=== PATIENT | male | born 1985 | race Caucasian/White ===

== ENCOUNTER 2019-10-29 13:02 | Inpatient (IN) ==
[2019-10-29] MEDS ORDERED: *HR* LORazepam 2 MG/ML VIAL IM ONE (13:09)
[2019-10-29] MEDS ORDERED: *HR* LORazepam 2 MG/ML VIAL ONE (13:09)
[2019-10-29] MEDS ORDERED: Thiamine (B-1) 100 MG, Folic Acid 1 MG in 0.9 % Sodium Chloride 50 ML IVPB ONE (13:10)
[2019-10-29] MEDS ORDERED: 0.9 % Sodium Chloride 1,000 ML IVC ONE ×2 (13:10→14:41)
[2019-10-29] MEDS ORDERED: diazePAM 10 MG/2 ML SYRINGE IM STA (13:41)
[2019-10-29 14:12] LABS: Red Cell Distribution Width 13.2 % (11.5-14.5)
[2019-10-29 14:14] LABS: Basophils % 0.5 %; Hematocrit 36.2 % (37.5-50.1); Hemoglobin 12.7 g/dL (12.9-16.9); Lymphocytes # 0.3 K/mcL (0.6-4.6); Lymphocytes % 8.5 %; Mean Corpuscular HGB Conc 35.1 g/dL (31.6-35.5); Mean Corpuscular Hemoglobin 35.9 pg (28.0-33.3); Mean Corpuscular Volume 102.3 fL (83.0-100.0); Mean Platelet Volume 11.1 fL (9.4-12.4); Monocytes # 0.3 K/mcL (0.0-1.3); Neutrophils # 3.3 K/mcL (1.6-8.9); Nucleated Red Blood Cells 0.8 /100 WBC (0); Red Blood Count 3.54 M/mcL (4.19-5.50)
[2019-10-29 14:18] LABS: Acetaminophen < 10 mcg/mL (10-20); Salicylate < 2.5 mg/dL (15.0-30.0)
[2019-10-29] MEDS ORDERED: diazePAM 10 MG/2 ML SYRINGE IVP ONE (14:26)
[2019-10-29 14:27] LABS: INR 1.2; Prothrombin Time 13.5 Seconds (9.4-12.1)
[2019-10-29 14:33] LABS: Platelet Count 40 K/mcL (140-400)
[2019-10-29 14:40] LABS: BUN/Creatinine Ratio 18 (6-26); Blood Urea Nitrogen 13 mg/dL (6-20); Calcium 9.2 mg/dL (8.6-10.3); Carbon Dioxide 34 mEq/L (23-29); Chloride 76 mEq/L (98-107); Creatine Kinase 1089 Units/L (30-223); Ethanol < 10 mg/dL (Less than 10); Glucose 153 mg/dL (70-105); Lipase 254 Units/L (11-82); Magnesium 1.2 mg/dL (1.6-2.6); Osmolality,Calculated 281 (280-300); Potassium 2.3 mEq/L (3.5-5.1); Sodium 134 mEq/L (136-145); Troponin I 0.03 ng/mL (< 0.04); eGFR For African Americans > 60 (> 60); eGFR For Non-African Americans > 60 (> 60)
[2019-10-29] MEDS ORDERED: 0.9 % Sodium Chloride 500 ML IVC ONE (14:41)
[2019-10-29] MEDS ORDERED: Potassium Chloride 40 MEQ, Lidocaine 1% 2 ML in 0.9 % Sodium Chloride 500 ML IVPB ONE (14:44)
[2019-10-29] MEDS ORDERED: Magnesium Sulfate 1 GM/102 ML PIGGYBACK IVPB ONE (14:49)
[2019-10-29 14:54] LABS: Thyroid Stimulating Hormone 1.609 mcIU/mL (0.340-5.600)
[2019-10-29] MEDS ORDERED: cefTRIAXone 1,000 MG in Water for inj. (sterile) 10 ML IVP ONE (15:33)
[2019-10-29] MEDS ORDERED: Acyclovir 800 MG in D5% in Water 250 ML IVPB STA (15:35)
[2019-10-29] MEDS ORDERED: Acetaminophen 325 MG TABLET PO PRN (15:49)
[2019-10-29] MEDS ORDERED: Naloxone 0.4 MG/ML INJ IVP PRN (15:49)
[2019-10-29] MEDS ORDERED: cefTRIAXone 2,000 MG in Water for inj. (sterile) 20 ML IVP ONE (15:50)
[2019-10-29] MEDS ORDERED: Vancomycin 1,750 MG/517.5 ML IV.SOLN IVPB ONE (15:50)
[2019-10-29] MEDS ORDERED: *HR* Promethazine 25 MG/ML VIAL IVP PRN (15:55)
[2019-10-29] MEDS ORDERED: *HR* LORazepam 2 MG/ML VIAL IVP PRN ×2 (15:55)
[2019-10-29] MEDS ORDERED: Vancomycin (wt based) 1,000 MG VIAL IVPB SCH (16:00)
[2019-10-29 16:22] LABS: Bacteria,Urine Few per hpf (None-Few); Bilirubin,Urine Negative (Negative); Blood,Urine Moderate (Negative); Clarity,Urine Clear (Clear); Color,Urine Light-Orange (Yellow); Glucose,Urine (UA) Normal (Normal); Hyaline Casts,Urine Many per lpf (None Seen); Ketones,Urine 10 mg/dL (Negative); Leukocyte Esterase,Urine Negative (Negative); Mucus,Urine Few per lpf (None-Few); Nitrite,Urine Negative (Negative); Protein,Urine 100 mg/dL (Neg-Trace); Squamous Epithelial Cell,Urine Few per hpf (None-Few); WBC,Urine 0-3 per hpf (0-3)
[2019-10-29 16:24] LABS: Amphetamine Screen,Urine Negative ng/mL (Cutoff=1000); Barbiturate Screen,Urine Negative ng/mL (Cutoff=200); Benzodiazepines Screen,Urine Negative ng/mL (Cutoff=200); Cannabinoid Screen,Urine Negative ng/mL (Cutoff = 50); Cocaine Screen,Urine Negative ng/mL (Cutoff= 300); Opiate Screen,Urine Negative ng/mL (Cutoff=300); Phencyclidine Screen,Urine Negative ng/mL (Cutoff=25)
[2019-10-29 18:07] LABS: Appearance,CSF Clear (Clear); Red Blood Cell,CSF < 2000 RBC/mcL
[2019-10-29 18:25] LABS: Glucose,CSF 98 mg/dL (40-70); Total Protein,CSF 42 mg/dL (15-45)
[2019-10-29] MEDS: 0.9 % Sodium Chloride w KCl 20 MEQ/1,000 ML MLS IVC SCH (18:26)
[2019-10-29] MEDS: Thiamine (B-1) 100 MG, Folic Acid 1 MG, MVI, adult with vitamin K 10 ML in 0.9 % Sodi... IVPB SCH (18:27)
[2019-10-29] MEDS: Pantoprazole 40 MG VIAL IVP SCH (18:27)
[2019-10-29] MEDS: Dexmedetomidine HCl 400 MCG/100 ML MLS IVC SCH ×2 (19:17→22:28)
[2019-10-29] MEDS: *HR* LORazepam 2 MG/ML VIAL IVP PRN ×2 (19:35→20:35)
[2019-10-29 20:38] LABS: Alanine Aminotransferase 56 Units/L (7-52); Albumin 3.3 g/dL (3.5-5.7); Albumin/Globulin Ratio 1.2 (1.1-2.2); Alkaline Phosphatase 89 Units/L (34-104); Aspartate Amino Transferase 161 Units/L (13-39); BUN/Creatinine Ratio 16 (6-26); Bilirubin,Direct 1.4 mg/dL (0.0-0.2); Bilirubin,Indirect 1.3 mg/dL (0.0-1.0); Bilirubin,Total 2.7 mg/dL (0.3-1.0); Blood Urea Nitrogen 9 mg/dL (6-20); Calcium 7.8 mg/dL (8.6-10.3); Carbon Dioxide 34 mEq/L (23-29); Chloride 90 mEq/L (98-107); Creatine Kinase 888 Units/L (30-223); Globulin 2.7 g/dL (2.4-3.5); Glucose 92 mg/dL (70-105); Magnesium 1.4 mg/dL (1.6-2.6); Osmolality,Calculated 280 (280-300); Phosphorous 1.1 mg/dL (2.7-4.5); Potassium 2.9 mEq/L (3.5-5.1); Sodium 136 mEq/L (136-145); eGFR For African Americans > 60 (> 60); eGFR For Non-African Americans > 60 (> 60)
[2019-10-29] MEDS: Acyclovir 800 MG in D5% in Water 250 ML IVPB SCH (23:56)
[2019-10-30 00:36] LABS: Basophils % 0.4 %; Hematocrit 30.7 % (37.5-50.1); Immature Granulocytes % 0.9 % (0-4); Lymphocytes # 0.6 K/mcL (0.6-4.6); Lymphocytes % 27.2 %; Mean Corpuscular HGB Conc 33.9 g/dL (31.6-35.5); Mean Corpuscular Hemoglobin 35.7 pg (28.0-33.3); Mean Corpuscular Volume 105.5 fL (83.0-100.0); Mean Platelet Volume 10.7 fL (9.4-12.4); Monocytes # 0.2 K/mcL (0.0-1.3); Monocytes % 6.7 %; Nucleated Red Blood Cells 0.9 /100 WBC (0); Red Blood Count 2.91 M/mcL (4.19-5.50); Red Cell Distribution Width 13.4 % (11.5-14.5); Segmented Neutrophils % 64.8 %; White Blood Count 2.2 K/mcL (4.3-11.1)
[2019-10-30 00:38] LABS: Hemoglobin 10.4 g/dL (12.9-16.9)
[2019-10-30 00:39] LABS: Neutrophils # 1.4 K/mcL (1.6-8.9)
[2019-10-30 00:43] LABS: Platelet Count 26 K/mcL (140-400)
[2019-10-30 00:50] LABS: BUN/Creatinine Ratio 15 (6-26); Blood Urea Nitrogen 7 mg/dL (6-20); Carbon Dioxide 36 mEq/L (23-29); Chloride 94 mEq/L (98-107); Potassium 2.6 mEq/L (3.5-5.1); Sodium 139 mEq/L (136-145)
[2019-10-30 00:51] LABS: Alanine Aminotransferase 50 Units/L (7-52); Albumin/Globulin Ratio 1.2 (1.1-2.2); Alkaline Phosphatase 78 Units/L (34-104); Aspartate Amino Transferase 129 Units/L (13-39); Bilirubin,Direct 1.1 mg/dL (0.0-0.2); Bilirubin,Indirect 1.1 mg/dL (0.0-1.0); Bilirubin,Total 2.2 mg/dL (0.3-1.0); Calcium 7.7 mg/dL (8.6-10.3); Globulin 2.5 g/dL (2.4-3.5); Glucose 120 mg/dL (70-105); Magnesium 1.5 mg/dL (1.6-2.6); Osmolality,Calculated 287 (280-300); Phosphorous 1.4 mg/dL (2.7-4.5); Total Protein 5.5 g/dL (6.4-8.9); eGFR For African Americans > 60 (> 60); eGFR For Non-African Americans > 60 (> 60)
[2019-10-30] MEDS ORDERED: Potassium Phosphate 44 MEQ in 0.9 % Sodium Chloride 250 ML IVPB PRN (02:21)
[2019-10-30] MEDS: 0.9 % Sodium Chloride w KCl 20 MEQ/1,000 ML MLS IVC SCH ×3 (02:35→18:07)
[2019-10-30] MEDS: Dexmedetomidine HCl 400 MCG/100 ML MLS IVC SCH ×3 (03:10→19:46)
[2019-10-30 03:23] LABS: VBG Ionized Calcium 0.99 mmol/L (1.15-1.35)
[2019-10-30] MEDS: Calcium Gluconate 1gm/50mL 1 GM/50 ML BAG IVPB PRN ×3 (03:31→23:01)
[2019-10-30 03:39] LABS: Magnesium 1.6 mg/dL (1.6-2.6); Phosphorous 1.6 mg/dL (2.7-4.5)
[2019-10-30] MEDS: cefTRIAXone 2,000 MG in Water for inj. (sterile) 20 ML IVP SCH ×2 (04:31→18:00)
[2019-10-30] MEDS: Vancomycin 1,750 MG/517.5 ML IV.SOLN IVPB SCH ×2 (04:31→17:50)
[2019-10-30] MEDS: Pantoprazole 40 MG VIAL IVP SCH ×2 (05:06→17:51)
[2019-10-30] MEDS: *HR* LORazepam 2 MG/ML VIAL IVP PRN (07:12)
[2019-10-30] MEDS: Acyclovir 800 MG in D5% in Water 250 ML IVPB SCH ×2 (07:44→16:34)
[2019-10-30 08:40] LABS: BUN/Creatinine Ratio 13 (6-26); Blood Urea Nitrogen 6 mg/dL (6-20); Calcium 7.9 mg/dL (8.6-10.3); Carbon Dioxide 31 mEq/L (23-29); Chloride 97 mEq/L (98-107); Glucose 89 mg/dL (70-105); Osmolality,Calculated 289 (280-300); Potassium 3.7 mEq/L (3.5-5.1); Sodium 141 mEq/L (136-145); eGFR For African Americans > 60 (> 60); eGFR For Non-African Americans > 60 (> 60)
[2019-10-30] MEDS ORDERED: 0.9 % Sodium Chloride 250 ML ONE (13:33)
[2019-10-30] MEDS: Nicotine 21 MG PATCH.TD24 TD SCH (14:32)
[2019-10-30 14:41] LABS: VBG Ionized Calcium 0.97 mmol/L (1.15-1.35)
[2019-10-30 14:53] LABS: Alanine Aminotransferase 52 Units/L (7-52); Albumin 3.3 g/dL (3.5-5.7); Albumin/Globulin Ratio 1.2 (1.1-2.2); Alkaline Phosphatase 89 Units/L (34-104); Aspartate Amino Transferase 130 Units/L (13-39); BUN/Creatinine Ratio 9 (6-26); Bilirubin,Direct 0.7 mg/dL (0.0-0.2); Bilirubin,Indirect 1.2 mg/dL (0.0-1.0); Bilirubin,Total 1.9 mg/dL (0.3-1.0); Blood Urea Nitrogen 5 mg/dL (6-20); Calcium 8.2 mg/dL (8.6-10.3); Carbon Dioxide 29 mEq/L (23-29); Chloride 97 mEq/L (98-107); Globulin 2.8 g/dL (2.4-3.5); Glucose 139 mg/dL (70-105); Magnesium 1.7 mg/dL (1.6-2.6); Osmolality,Calculated 288 (280-300); Phosphorous 2.2 mg/dL (2.7-4.5); Potassium 4.1 mEq/L (3.5-5.1); Sodium 139 mEq/L (136-145); Total Protein 6.1 g/dL (6.4-8.9); eGFR For African Americans > 60 (> 60); eGFR For Non-African Americans > 60 (> 60)
[2019-10-30] MEDS: Thiamine (B-1) 100 MG, Folic Acid 1 MG, MVI, adult with vitamin K 10 ML in 0.9 % Sodi... IVPB SCH (18:08)
[2019-10-30] MEDS: Ketorolac 30 MG/ML VIAL IVP PRN (20:11)
[2019-10-30 22:25] LABS: VBG Ionized Calcium 1.06 mmol/L (1.15-1.35)
[2019-10-30 22:40] LABS: BUN/Creatinine Ratio 10 (6-26); Blood Urea Nitrogen 6 mg/dL (6-20); Calcium 8.6 mg/dL (8.6-10.3); Carbon Dioxide 29 mEq/L (23-29); Chloride 94 mEq/L (98-107); Glucose 194 mg/dL (70-105); Magnesium 1.8 mg/dL (1.6-2.6); Osmolality,Calculated 285 (280-300); Phosphorous 2.1 mg/dL (2.7-4.5); Potassium 3.4 mEq/L (3.5-5.1); Sodium 136 mEq/L (136-145); eGFR For African Americans > 60 (> 60); eGFR For Non-African Americans > 60 (> 60)
[2019-10-30] MEDS: Potassium Chloride Elixir 20 MEQ/15 ML UDC PO PRN (22:58)
[2019-10-31] MEDS: Acyclovir 800 MG in D5% in Water 250 ML IVPB SCH ×4 (01:03→23:52)
[2019-10-31] MEDS: Vancomycin 1,500 MG/265 ML IV.SOLN IVPB SCH ×2 (02:04→10:31)
[2019-10-31] MEDS: 0.9 % Sodium Chloride w KCl 20 MEQ/1,000 ML MLS IVC SCH ×2 (02:04→09:45)
[2019-10-31 04:29] LABS: Hemoglobin 11.5 g/dL (12.9-16.9)
[2019-10-31 04:31] LABS: Basophils % 0.8 %; Eosinophils # 0.1 K/mcL (0.0-0.6); Eosinophils % 1.4 %; Hematocrit 34.2 % (37.5-50.1); Immature Granulocytes % 0.8 % (0-4); Immature Platelets 11.5 % (1.1-6.1); Lymphocytes # 0.7 K/mcL (0.6-4.6); Lymphocytes % 20.1 %; Mean Corpuscular HGB Conc 33.6 g/dL (31.6-35.5); Mean Corpuscular Hemoglobin 36.4 pg (28.0-33.3); Mean Corpuscular Volume 108.2 fL (83.0-100.0); Monocytes # 0.2 K/mcL (0.0-1.3); Monocytes % 4.8 %; Neutrophils # 2.5 K/mcL (1.6-8.9); Nucleated Red Blood Cells 1.1 /100 WBC (0); Red Blood Count 3.16 M/mcL (4.19-5.50); Red Cell Distribution Width 13.6 % (11.5-14.5); Segmented Neutrophils % 72.1 %; White Blood Count 3.5 K/mcL (4.3-11.1)
[2019-10-31 04:32] LABS: Immature Reticulocyte % 12.6 % (11.0-38.0); Retculocyte # 0.11 M/mcL (0.05-0.10); Reticulocyte % 3.5 % (1.6-2.8)
[2019-10-31 04:37] LABS: Platelet Count 50 K/mcL (140-400)
[2019-10-31 04:51] LABS: BUN/Creatinine Ratio 9 (6-26); Blood Urea Nitrogen 5 mg/dL (6-20); Carbon Dioxide 30 mEq/L (23-29); Chloride 96 mEq/L (98-107); Potassium 3.5 mEq/L (3.5-5.1); Sodium 137 mEq/L (136-145); eGFR For African Americans > 60 (> 60)
[2019-10-31 04:52] LABS: Alanine Aminotransferase 54 Units/L (7-52); Albumin 3.5 g/dL (3.5-5.7); Albumin/Globulin Ratio 1.2 (1.1-2.2); Alkaline Phosphatase 104 Units/L (34-104); Aspartate Amino Transferase 103 Units/L (13-39); Bilirubin,Direct 0.8 mg/dL (0.0-0.2); Bilirubin,Indirect 1.1 mg/dL (0.0-1.0); Bilirubin,Total 1.9 mg/dL (0.3-1.0); Calcium 8.9 mg/dL (8.6-10.3); Globulin 2.9 g/dL (2.4-3.5); Glucose 90 mg/dL (70-105); Magnesium 2.1 mg/dL (1.6-2.6); Osmolality,Calculated 281 (280-300); Phosphorous 2.4 mg/dL (2.7-4.5); Total Protein 6.4 g/dL (6.4-8.9); eGFR For Non-African Americans > 60 (> 60)
[2019-10-31 04:53] LABS: % Iron Saturation 23 % (20-55); Iron 56 mcg/dL (65-175); Lactate Dehydrogenase 354 Units/L (140-271); Transferrin 171 mg/dL (203-362)
[2019-10-31 05:11] LABS: Ferritin 352 ng/mL (20-250)
[2019-10-31 05:16] LABS: Folate 9.1 ng/mL (3.0-16.0)
[2019-10-31] MEDS: cefTRIAXone 2,000 MG in Water for inj. (sterile) 20 ML IVP SCH (05:27)
[2019-10-31] MEDS: Dexmedetomidine HCl 400 MCG/100 ML MLS IVC SCH (05:33)
[2019-10-31] MEDS: Pantoprazole 40 MG VIAL IVP SCH (05:34)
[2019-10-31] MEDS: Ketorolac 30 MG/ML VIAL IVP PRN (06:58)
[2019-10-31 08:54] LABS: BUN/Creatinine Ratio 8 (6-26); Blood Urea Nitrogen 4 mg/dL (6-20); Calcium 8.6 mg/dL (8.6-10.3); Carbon Dioxide 30 mEq/L (23-29); Chloride 96 mEq/L (98-107); Glucose 132 mg/dL (70-105); Osmolality,Calculated 277 (280-300); Potassium 3.6 mEq/L (3.5-5.1); Sodium 134 mEq/L (136-145); eGFR For African Americans > 60 (> 60); eGFR For Non-African Americans > 60 (> 60)
[2019-10-31] MEDS: Potassium Chloride Elixir 20 MEQ/15 ML UDC PO PRN (09:03)
[2019-10-31] MEDS: Nicotine 21 MG PATCH.TD24 TD SCH (09:15)
[2019-10-31] MEDS ORDERED: Dexmedetomidine HCl 400 MCG/100 ML MLS IVC SCH (11:33)
[2019-10-31] MEDS ORDERED: *HR* LORazepam 2 MG/ML VIAL IVP PRN ×3 (11:33)
[2019-10-31] MEDS ORDERED: *HR* Promethazine 25 MG/ML VIAL IVP PRN (11:33)
[2019-10-31] MEDS ORDERED: Naloxone 0.4 MG/ML INJ IVP PRN (11:33)
[2019-10-31] MEDS ORDERED: Acetaminophen 325 MG TABLET PO PRN (11:33)
[2019-10-31 17:09] LABS: BUN/Creatinine Ratio 5 (6-26); Blood Urea Nitrogen 3 mg/dL (6-20); Calcium 8.8 mg/dL (8.6-10.3); Carbon Dioxide 25 mEq/L (23-29); Chloride 100 mEq/L (98-107); Glucose 165 mg/dL (70-105); Osmolality,Calculated 282 (280-300); Potassium 3.7 mEq/L (3.5-5.1); Sodium 136 mEq/L (136-145); eGFR For African Americans > 60 (> 60); eGFR For Non-African Americans > 60 (> 60)
[2019-10-31] MEDS ORDERED: Thiamine (B-1) 100 MG, Folic Acid 1 MG, MVI, adult with vitamin K 10 ML in 0.9 % Sodi... IVPB SCH (18:00)
[2019-11-01 05:50] LABS: VBG Ionized Calcium 1.18 mmol/L (1.15-1.35)
[2019-11-01 05:53] LABS: Basophils % 0.8 %; Eosinophils # 0.1 K/mcL (0.0-0.6); Eosinophils % 2.2 %; Hematocrit 33.2 % (37.5-50.1); Hemoglobin 11.1 g/dL (12.9-16.9); Immature Granulocytes % 0.8 % (0-4); Immature Platelets 7.9 % (1.1-6.1); Lymphocytes # 0.9 K/mcL (0.6-4.6); Lymphocytes % 23.9 %; Mean Corpuscular HGB Conc 33.4 g/dL (31.6-35.5); Mean Corpuscular Hemoglobin 36.3 pg (28.0-33.3); Mean Corpuscular Volume 108.5 fL (83.0-100.0); Mean Platelet Volume 10.8 fL (9.4-12.4); Monocytes # 0.3 K/mcL (0.0-1.3); Monocytes % 8.6 %; Neutrophils # 2.4 K/mcL (1.6-8.9); Nucleated Red Blood Cells 0.5 /100 WBC (0); Platelet Count 102 K/mcL (140-400); Red Blood Count 3.06 M/mcL (4.19-5.50); Red Cell Distribution Width 13.8 % (11.5-14.5); Segmented Neutrophils % 63.7 %; White Blood Count 3.7 K/mcL (4.3-11.1)
[2019-11-01 06:07] LABS: Alanine Aminotransferase 51 Units/L (7-52); Albumin 3.6 g/dL (3.5-5.7); Albumin/Globulin Ratio 1.2 (1.1-2.2); Alkaline Phosphatase 99 Units/L (34-104); Aspartate Amino Transferase 78 Units/L (13-39); BUN/Creatinine Ratio 7 (6-26); Bilirubin,Total 1.5 mg/dL (0.3-1.0); Blood Urea Nitrogen 4 mg/dL (6-20); Calcium 9.3 mg/dL (8.6-10.3); Carbon Dioxide 28 mEq/L (23-29); Chloride 100 mEq/L (98-107); Glucose 116 mg/dL (70-105); Magnesium 1.6 mg/dL (1.6-2.6); Osmolality,Calculated 280 (280-300); Phosphorous 2.4 mg/dL (2.7-4.5); Potassium 3.9 mEq/L (3.5-5.1); Sodium 136 mEq/L (136-145); Total Protein 6.6 g/dL (6.4-8.9); eGFR For African Americans > 60 (> 60); eGFR For Non-African Americans > 60 (> 60)
[2019-11-01] MEDS: Acyclovir 800 MG in D5% in Water 250 ML IVPB SCH ×3 (08:54→23:27)
[2019-11-01] MEDS: Gabapentin 300 MG CAPSULE PO SCH ×3 (08:54→21:32)
[2019-11-01] MEDS ORDERED: Nicotine 21 MG PATCH.TD24 TD SCH (09:00)
[2019-11-01] MEDS ORDERED: Naloxone 0.4 MG/ML INJ IVP PRN (09:20)
[2019-11-01] MEDS ORDERED: *HR* LORazepam 2 MG/ML VIAL IVP PRN (09:20)
[2019-11-01] MEDS ORDERED: *HR* Promethazine 25 MG/ML VIAL IVP PRN (09:20)
[2019-11-01] MEDS: *HR* LORazepam 2 MG/ML VIAL IVP PRN (18:02)
[2019-11-01] MEDS ORDERED: Cetirizine HCl 5 MG/5 ML UDC PO SCH (21:00)
[2019-11-01] MEDS: Acetaminophen 325 MG TABLET PO PRN (21:31)
[2019-11-01] MEDS ORDERED: Ketorolac 15 MG/ML VIAL IVP ONE (21:41)
[2019-11-01] MEDS ORDERED: Melatonin 3 MG TABLET PO ONE (22:05)
[2019-11-02] MEDS ORDERED: Ketorolac 15 MG/ML VIAL IVP ONE (03:33)
[2019-11-02 06:19] LABS: Basophils % 0.3 %; Eosinophils # 0.1 K/mcL (0.0-0.6); Eosinophils % 1.4 %; Hematocrit 33.2 % (37.5-50.1); Immature Granulocytes % 0.3 % (0-4); Lymphocytes # 1.1 K/mcL (0.6-4.6); Lymphocytes % 29.9 %; Mean Corpuscular HGB Conc 33.1 g/dL (31.6-35.5); Mean Corpuscular Hemoglobin 36.3 pg (28.0-33.3); Mean Corpuscular Volume 109.6 fL (83.0-100.0); Mean Platelet Volume 9.5 fL (9.4-12.4); Monocytes # 0.5 K/mcL (0.0-1.3); Monocytes % 15.1 %; Neutrophils # 1.9 K/mcL (1.6-8.9); Platelet Count 136 K/mcL (140-400); Red Blood Count 3.03 M/mcL (4.19-5.50); Red Cell Distribution Width 14.3 % (11.5-14.5); White Blood Count 3.5 K/mcL (4.3-11.1)
[2019-11-02 06:23] LABS: VBG Ionized Calcium 1.14 mmol/L (1.15-1.35)
[2019-11-02 06:39] LABS: Alanine Aminotransferase 48 Units/L (7-52); Albumin 3.8 g/dL (3.5-5.7); Albumin/Globulin Ratio 1.2 (1.1-2.2); Alkaline Phosphatase 82 Units/L (34-104); Aspartate Amino Transferase 56 Units/L (13-39); BUN/Creatinine Ratio 11 (6-26); Bilirubin,Total 1.5 mg/dL (0.3-1.0); Blood Urea Nitrogen 8 mg/dL (6-20); Calcium 9.2 mg/dL (8.6-10.3); Carbon Dioxide 28 mEq/L (23-29); Chloride 100 mEq/L (98-107); Globulin 3.1 g/dL (2.4-3.5); Glucose 125 mg/dL (70-105); Magnesium 1.9 mg/dL (1.6-2.6); Osmolality,Calculated 284 (280-300); Phosphorous 4.9 mg/dL (2.7-4.5); Potassium 3.6 mEq/L (3.5-5.1); Sodium 137 mEq/L (136-145); Total Protein 6.9 g/dL (6.4-8.9); eGFR For African Americans > 60 (> 60); eGFR For Non-African Americans > 60 (> 60)
[2019-11-02] MEDS: Nicotine 21 MG PATCH.TD24 TD SCH (09:23)
[2019-11-02] MEDS: Gabapentin 300 MG CAPSULE PO SCH ×3 (09:23→19:21)
[2019-11-02] MEDS: Acyclovir 800 MG in D5% in Water 250 ML IVPB SCH ×2 (09:24→18:13)
[2019-11-02] MEDS ORDERED: Ibuprofen 400 MG TABLET PO ONE (13:29)
[2019-11-02] MEDS: Multivit/Ca/Min/Fe/FA 1 TAB TABLET PO SCH (18:12)
[2019-11-02] MEDS: Thiamine (B-1) 100 MG TABLET PO SCH (18:13)
[2019-11-02] MEDS: Folic Acid 1 MG TABLET PO SCH (18:13)
[2019-11-02] MEDS: Cetirizine HCl 5 MG/5 ML UDC PO SCH (19:21)
[2019-11-02] MEDS: Ketorolac 15 MG/ML VIAL IVP PRN (21:11)
[2019-11-03] MEDS: Acyclovir 800 MG in D5% in Water 250 ML IVPB SCH ×4 (00:21→23:53)
[2019-11-03] MEDS: *HR* LORazepam 2 MG/ML VIAL IVP PRN ×3 (00:46→23:54)
[2019-11-03] MEDS: Ketorolac 15 MG/ML VIAL IVP PRN ×2 (05:18→15:50)
[2019-11-03 07:35] LABS: Basophils % 0.7 %; Eosinophils # 0.1 K/mcL (0.0-0.6); Eosinophils % 1.6 %; Hematocrit 34.3 % (37.5-50.1); Hemoglobin 11.2 g/dL (12.9-16.9); Immature Granulocytes % 0.7 % (0-4); Lymphocytes # 1.1 K/mcL (0.6-4.6); Mean Corpuscular HGB Conc 32.7 g/dL (31.6-35.5); Mean Corpuscular Hemoglobin 36.5 pg (28.0-33.3); Mean Corpuscular Volume 111.7 fL (83.0-100.0); Mean Platelet Volume 9.5 fL (9.4-12.4); Monocytes # 1.2 K/mcL (0.0-1.3); Monocytes % 20.2 %; Neutrophils # 3.3 K/mcL (1.6-8.9); Platelet Count 226 K/mcL (140-400); Red Blood Count 3.07 M/mcL (4.19-5.50); Red Cell Distribution Width 14.6 % (11.5-14.5); Segmented Neutrophils % 57.8 %
[2019-11-03 07:36] LABS: INR 0.9; Prothrombin Time 10.4 Seconds (9.4-12.1)
[2019-11-03 07:43] LABS: White Blood Count 5.7 K/mcL (4.3-11.1)
[2019-11-03 07:52] LABS: Large Platelets Present (Not Present); Macrocytosis Present (Not Present); Platelet Estimate Normal (Normal); Toxic Granulation Present (Not Present)
[2019-11-03 07:55] LABS: Alanine Aminotransferase 47 Units/L (7-52); Albumin/Globulin Ratio 1.3 (1.1-2.2); Alkaline Phosphatase 82 Units/L (34-104); Aspartate Amino Transferase 53 Units/L (13-39); BUN/Creatinine Ratio 9 (6-26); Bilirubin,Total 1.4 mg/dL (0.3-1.0); Blood Urea Nitrogen 11 mg/dL (6-20); Calcium 9.7 mg/dL (8.6-10.3); Carbon Dioxide 28 mEq/L (23-29); Chloride 100 mEq/L (98-107); Globulin 3.2 g/dL (2.4-3.5); Glucose 89 mg/dL (70-105); Magnesium 1.8 mg/dL (1.6-2.6); Osmolality,Calculated 283 (280-300); Sodium 137 mEq/L (136-145); Total Protein 7.2 g/dL (6.4-8.9); eGFR For African Americans > 60 (> 60); eGFR For Non-African Americans > 60 (> 60)
[2019-11-03] MEDS: Multivit/Ca/Min/Fe/FA 1 TAB TABLET PO SCH (08:45)
[2019-11-03] MEDS: Thiamine (B-1) 100 MG TABLET PO SCH (08:45)
[2019-11-03] MEDS: Gabapentin 300 MG CAPSULE PO SCH ×3 (08:45→20:37)
[2019-11-03] MEDS: Folic Acid 1 MG TABLET PO SCH (08:45)
[2019-11-03] MEDS: Cetirizine HCl 5 MG/5 ML UDC PO SCH (08:45)
[2019-11-03] MEDS: Nicotine 21 MG PATCH.TD24 TD SCH ×2 (08:46→15:58)
[2019-11-03] MEDS ORDERED: Haloperidol Lactate 5 MG/ML VIAL IM ONE ×2 (10:41→11:11)
[2019-11-03] MEDS ORDERED: *HR* LORazepam 2 MG/ML VIAL IVP ONE (11:11)
[2019-11-03] MEDS ORDERED: Haloperidol Lactate 5 MG/ML VIAL IVP PRN (19:56)
[2019-11-03] MEDS: Acetaminophen 325 MG TABLET PO PRN (20:46)
[2019-11-03] MEDS: Nystatin Cream 15 GM TUBE TP SCH (20:49)
[2019-11-04] MEDS ORDERED: methocarbamoL 500 MG TABLET PO ONE (00:44)
[2019-11-04 02:35] LABS: Hematocrit 32.5 % (37.5-50.1); Hemoglobin 10.5 g/dL (12.9-16.9); Lymphocytes # 1.3 K/mcL (0.6-4.6); Mean Corpuscular HGB Conc 32.3 g/dL (31.6-35.5); Mean Corpuscular Hemoglobin 36.6 pg (28.0-33.3); Mean Corpuscular Volume 113.2 fL (83.0-100.0); Mean Platelet Volume 9.4 fL (9.4-12.4); Platelet Count 269 K/mcL (140-400); Red Blood Count 2.87 M/mcL (4.19-5.50); Red Cell Distribution Width 14.6 % (11.5-14.5); White Blood Count 4.3 K/mcL (4.3-11.1)
[2019-11-04 02:55] LABS: Alanine Aminotransferase 39 Units/L (7-52); Albumin 3.6 g/dL (3.5-5.7); Albumin/Globulin Ratio 1.2 (1.1-2.2); Alkaline Phosphatase 74 Units/L (34-104); Aspartate Amino Transferase 42 Units/L (13-39); BUN/Creatinine Ratio 10 (6-26); Bilirubin,Total 1.2 mg/dL (0.3-1.0); Blood Urea Nitrogen 14 mg/dL (6-20); Calcium 9.2 mg/dL (8.6-10.3); Carbon Dioxide 27 mEq/L (23-29); Chloride 101 mEq/L (98-107); Globulin 2.9 g/dL (2.4-3.5); Glucose 120 mg/dL (70-105); Osmolality,Calculated 288 (280-300); Potassium 3.9 mEq/L (3.5-5.1); Sodium 138 mEq/L (136-145); Total Protein 6.5 g/dL (6.4-8.9); eGFR For African Americans > 60 (> 60); eGFR For Non-African Americans 58 (> 60)
[2019-11-04 03:17] LABS: Monocytes # 0.7 K/mcL (0.0-1.3); Neutrophils # 2.3 K/mcL (1.6-8.9)
[2019-11-04 03:18] LABS: Anisocytosis 1+ (Not Present); Platelet Estimate Normal (Normal)
[2019-11-04] MEDS: Ketorolac 15 MG/ML VIAL IVP PRN (03:36)
[2019-11-04] MEDS ORDERED: 0.9 % Sodium Chloride 1,000 ML IVC SCH (07:30)
[2019-11-04] MEDS: Acyclovir 800 MG in D5% in Water 250 ML IVPB SCH ×2 (08:07→17:25)
[2019-11-04] MEDS: Gabapentin 300 MG CAPSULE PO SCH ×3 (08:14→19:53)
[2019-11-04] MEDS: Thiamine (B-1) 100 MG TABLET PO SCH (08:14)
[2019-11-04] MEDS: Multivit/Ca/Min/Fe/FA 1 TAB TABLET PO SCH (08:14)
[2019-11-04] MEDS: Cetirizine HCl 5 MG/5 ML UDC PO SCH (08:15)
[2019-11-04] MEDS: Folic Acid 1 MG TABLET PO SCH (08:15)
[2019-11-04] MEDS: Nicotine 21 MG PATCH.TD24 TD SCH (08:17)
[2019-11-04] MEDS: Nystatin Cream 15 GM TUBE TP SCH ×2 (08:17→19:53)
[2019-11-04] MEDS: *HR* LORazepam 2 MG/ML VIAL IVP PRN ×3 (08:39→22:24)
[2019-11-04] MEDS: Acetaminophen 325 MG TABLET PO PRN ×2 (10:57→22:23)
[2019-11-04] MEDS ORDERED: Haloperidol Lactate 5 MG/ML VIAL IM PRN (11:57)
[2019-11-04] MEDS ORDERED: *HR* LORazepam 2 MG/ML VIAL IVP STA (13:23)
[2019-11-04] MEDS ORDERED: methocarbamoL 500 MG TABLET PO PRN (20:13)
[2019-11-04] MEDS ORDERED: Gabapentin 100 MG CAPSULE PO ONE (20:13)
[2019-11-05] MEDS: Acyclovir 800 MG in D5% in Water 250 ML IVPB SCH ×2 (00:58→08:12)
[2019-11-05] MEDS ORDERED: 0.9 % Sodium Chloride 1,000 ML ONE (02:45)
[2019-11-05 03:13] LABS: Eosinophils # 0.1 K/mcL (0.0-0.6); Hematocrit 31.4 % (37.5-50.1); Hemoglobin 10.1 g/dL (12.9-16.9); Mean Corpuscular HGB Conc 32.2 g/dL (31.6-35.5); Mean Corpuscular Hemoglobin 36.7 pg (28.0-33.3); Mean Corpuscular Volume 114.2 fL (83.0-100.0); Mean Platelet Volume 9.3 fL (9.4-12.4); Platelet Count 370 K/mcL (140-400); Red Blood Count 2.75 M/mcL (4.19-5.50); Red Cell Distribution Width 14.4 % (11.5-14.5); White Blood Count 4.6 K/mcL (4.3-11.1)
[2019-11-05] MEDS ORDERED: 0.9 % Sodium Chloride 1,000 ML IVC SCH (03:15)
[2019-11-05 03:28] LABS: Alanine Aminotransferase 37 Units/L (7-52); Albumin 3.6 g/dL (3.5-5.7); Albumin/Globulin Ratio 1.2 (1.1-2.2); Alkaline Phosphatase 85 Units/L (34-104); Aspartate Amino Transferase 33 Units/L (13-39); BUN/Creatinine Ratio 11 (6-26); Bilirubin,Total 0.8 mg/dL (0.3-1.0); Blood Urea Nitrogen 11 mg/dL (6-20); Calcium 9.1 mg/dL (8.6-10.3); Carbon Dioxide 23 mEq/L (23-29); Chloride 108 mEq/L (98-107); Glucose 109 mg/dL (70-105); Osmolality,Calculated 286 (280-300); Potassium 4.2 mEq/L (3.5-5.1); Sodium 138 mEq/L (136-145); Total Protein 6.6 g/dL (6.4-8.9); eGFR For African Americans > 60 (> 60); eGFR For Non-African Americans > 60 (> 60)
[2019-11-05 03:56] LABS: Large Platelets Present (Not Present); Lymphocytes # 1.1 K/mcL (0.6-4.6); Macrocytosis Present (Not Present); Monocytes # 0.5 K/mcL (0.0-1.3); Neutrophils # 2.9 K/mcL (1.6-8.9); Platelet Estimate Normal (Normal)
[2019-11-05 08:07] VITALS: BP 133/94
[2019-11-05] MEDS: Cetirizine HCl 5 MG/5 ML UDC PO SCH (08:12)
[2019-11-05] MEDS: Gabapentin 300 MG CAPSULE PO SCH ×2 (08:12→14:06)
[2019-11-05] MEDS: Thiamine (B-1) 100 MG TABLET PO SCH (08:12)
[2019-11-05] MEDS: Folic Acid 1 MG TABLET PO SCH (08:12)
[2019-11-05] MEDS: Multivit/Ca/Min/Fe/FA 1 TAB TABLET PO SCH (08:12)
[2019-11-05] MEDS: Nicotine 21 MG PATCH.TD24 TD SCH (08:20)
[2019-11-05] MEDS: Nystatin Cream 15 GM TUBE TP SCH (09:06)
[2019-11-05 10:59] LABS: HSV Source CSF
== END 2019-11-05 15:30 | disposition left against medical advice (07) | DRG 894 ==
LOC: EDACCT# → EMEROOARM 13:02 → SUATTDRO 16:46 → ICNU 16:46 → 2ANU 11-01 15:12
PROVIDERS: ADMIT Pediatrics; ATTEND Internal Medicine